=== PATIENT | male | born 1985 | race Caucasian/White ===

== ENCOUNTER 2017-09-27 15:39 | Emergency (ER) | payer OTHER ==
[~2017-09-27] VITALS: Ht 175.3 cm; Wt 83.9 kg
[2017-09-27] MEDS ORDERED: KETOROLAC TROMETHAMINE 60 MG/2 ML VIAL IM ONE (18:00)
== END 2017-09-27 18:09 | disposition home or self-care (01) ==
LOC: FSED 15:39
DX: R07.89 Other chest pain (principal); R03.0 Elevated blood-pressure reading, without diagnosis of hypertension
CPT/HCPCS: 93005; 99284; J1885